=== PATIENT | male | born 1985 | race Caucasian/White ===

== ENCOUNTER 2018-03-18 12:04 | Emergency (ER) | payer OTHER ==
[~2018-03-18] VITALS: Ht 170.2 cm; Wt 70.3 kg
[~2018-03-18 12:04] MED LIST: Bactrim Ds Tab1 EACH PO; CEPH500 PO; CYCL10 PO; DIPATR PO; HYDACE5 PO; HYDR1TAB94 PO; IBUP600 PO; Keflex500 MG PO; NAPR500 PO; OXYACE5T PO; PROM25 PO; RANI150 PO; RXCYCL10 PO; RXHYDACE PO; SULTRIDS PO; TRAM50 PO
[2018-03-18] MEDS ORDERED: ERYT1OIN RIGHTEYE (13:33)
[2018-03-18] MEDS ORDERED: IBUP600 PO (13:33)
== END 2018-03-18 13:37 | disposition home or self-care (01) ==
LOC: ER 12:04
DX: S05.01XA Injury of conjunctiva and corneal abrasion without foreign body, right eye, initial encounter (principal); X58.XXXA Exposure to other specified factors, initial encounter
CPT/HCPCS: 99283

== ENCOUNTER 2018-05-27 20:49 | Emergency (ER) | payer OTHER ==
[~2018-05-27] VITALS: Ht 170.2 cm; Wt 68.0 kg
[~2018-05-27 20:49] MED LIST changes: +ERYT1OIN RIGHTEYE
[2018-05-27] MEDS ORDERED: IBUP600 PO (22:32)
[2018-05-27] MEDS ORDERED: ERYT1OIN BOTHEYES (22:32)
[2018-05-27] MEDS ORDERED: ACUVAIL 0.45%1 EACH RIGHTEYE (22:32)
== END 2018-05-27 22:47 | disposition home or self-care (01) ==
LOC: ER 20:49
DX: S05.01XA Injury of conjunctiva and corneal abrasion without foreign body, right eye, initial encounter (principal); W22.8XXA Striking against or struck by other objects, initial encounter
CPT/HCPCS: 99283

== ENCOUNTER 2018-10-23 20:00 | Emergency (ER) | payer MEDICAID ==
[~2018-10-23] VITALS: Ht 170.2 cm; Wt 74.8 kg
[~2018-10-23 20:00] MED LIST changes: +ACUVAIL 0.45%1 EACH RIGHTEYE; +ERYT1OIN BOTHEYES
== END 2018-10-23 22:47 | disposition home or self-care (01) ==
LOC: ER 20:00
DX: S81.812A Laceration without foreign body, left lower leg, initial encounter (principal); M54.9 Dorsalgia, unspecified; G89.29 Other chronic pain; Z86.19 Personal history of other infectious and parasitic diseases; W06.XXXA Fall from bed, initial encounter
CPT/HCPCS: 73590; A9270-GY

== ENCOUNTER 2018-11-14 21:40 | Emergency (ER) | payer MEDICAID ==
[~2018-11-14] VITALS: Ht 170.2 cm; Wt 77.1 kg
[2018-11-14 22:29] LABS: Bilirubin, Urine Neg (Neg); Blood, Urine 3+ (Neg); Glucose Qualitative, Urine Neg (Neg); Ketones, Urine Neg (Neg); Leukocyte Esterase, Urine 3+ (Neg); Nitrite, Urine Neg (Neg); Protein, Urine 2+ (Neg); Source, Urine Clean Catch; Specific Gravity, Urine 1.025 (1.003-1.022); Urobilinogen, Urine NORM (Normal)
[2018-11-14 22:33] LABS: Appearance, Urine Hazy (Clear); Color, Urine Yellow (P-Yellow)
[2018-11-14] MEDS ORDERED: Vibramycin100 MG PO (22:34)
[2018-11-14 22:36] LABS: Bacteria Few /hpf; Squamous Epithelial Cells Not Seen /hpf (Few); White Blood Cells, Urine TNTC /hpf (0-5)
== END 2018-11-14 23:00 | disposition home or self-care (01) ==
LOC: ER 21:40
PROVIDERS: Emergency Medicine
DX: N34.2 Other urethritis (principal); S81.812D Laceration without foreign body, left lower leg, subsequent encounter
CPT/HCPCS: 81001; 87086; 96372; 99283-25; J0696

== ENCOUNTER 2019-05-17 16:40 | Emergency (ER) | payer OTHER ==
[~2019-05-17] VITALS: Ht 170.2 cm; Wt 72.6 kg
[~2019-05-17 16:40] MED LIST changes: +Vibramycin100 MG PO
[2019-05-17 17:42] LABS: BASOPHILS ABSOLUTE AUTO 0.04 K/mm3 (0.00-0.23); BASOPHILS PERCENT AUTO 0 % (0-2); EOSINOPHILS ABSOLUTE AUTO 0.03 K/mm3 (0.00-0.68); EOSINOPHILS PERCENT AUTO 0 % (0-6); Hematocrit 44.7 % (37.0-53.0); Hemoglobin 14.9 g/dL (13.5-17.5); IMMATURE GRAN ABSOLUTE AUTO 0.07 K/mm3 (0.00-0.10); IMMATURE GRAN PERCENT AUTO 1 % (0-1); LYMPHOCYTES ABSOLUTE AUTO 1.29 K/mm3 (0.84-5.20); LYMPHOCYTES PERCENT AUTO 9 % (21-46); MONOCYTES ABSOLUTE AUTO 0.55 K/mm3 (0.16-1.47); MONOCYTES PERCENT AUTO 4 % (4-13); Mean Corpuscular HGB 29.7 pg (26.0-34.0); Mean Corpuscular HGB Conc 33.3 g/dL (31.5-36.5); Mean Corpuscular Volume 89 fL (80-100); Mean Platelet Volume 10.9 fL (9.1-12.4); NEUTROPHILS ABSOLUTE AUTO 11.98 K/mm3 (1.96-9.15); NEUTROPHILS PERCENT AUTO 86 % (41-73); Platelet Count 284 K/mm3 (150-400); RDW Coefficient Variation 12.6 % (11.7-14.2); RDW Standard Deviation 41.4 fL (35.1-46.3); Red Blood Cell Count 5.02 M/mm3 (4.30-5.90); White Blood Cell Count 13.96 K/mm3 (4.00-11.30)
[2019-05-17 18:04] LABS: Alanine Aminotransfer (ALT/SGP 88 U/L (12-78); Albumin, Blood 4.1 g/dL (3.4-5.0); Albumin/Globulin Ratio 1.1 (0.8-1.8); Alk Phos 100 U/L (50-136); Anion Gap 8 mmol/L (6-16); Aspartate Aminotrans (AST/SGOT 50 U/L (12-37); Bilirubin, Total 0.6 mg/dL (0.1-1.0); Blood Urea Nitrogen 20 mg/dL (8-24); Bun/Creatinine Ratio 28.5 (12.0-20.0); CO2, Blood 25 mmol/L (21-32); Calcium, Blood 9.5 mg/dL (8.5-10.1); Chloride, Blood 105 mmol/L (98-108); Globulin, Blood 3.7 g/dL (2.2-4.0); Glomerular Filtration Rate >60 (60-); Glucose, Blood 133 mg/dL (70-99); Potassium, Blood 3.7 mmol/L (3.5-5.5); Sodium, Blood 138 mmol/L (136-145); Total Protein, Blood 7.8 g/dL (6.4-8.2)
[2019-05-17 20:07] LABS: Ethanol (Alcohol), Blood, Med <3 mg/dL
[2019-05-17] MEDS ORDERED: ONDA4ODT SL (21:09)
[2019-05-17] MEDS ORDERED: Pepcid20 MG PO (21:09)
== END 2019-05-17 21:35 | disposition home or self-care (01) ==
LOC: ER 16:40
PROVIDERS: Emergency Medicine; Physician Assistant
DX: R10.13 Epigastric pain (principal); R10.84 Generalized abdominal pain
CPT/HCPCS: 36415; 80053; 83690; 85025; 96361; 96374; 96375; 99284-25; A9270-GY; G0480; J1200; J2765; J7120

== ENCOUNTER 2020-06-12 19:04 | Emergency (ER) | payer SELFPAY ==
[~2020-06-12] VITALS: Ht 170.2 cm; Wt 72.6 kg
[~2020-06-12 19:04] MED LIST changes: +MUPIROCIN15 GM TOP; +ONDA4ODT SL; +Pepcid20 MG PO
[2020-06-12 19:59] LABS: BASOPHILS ABSOLUTE AUTO 0.03 K/mm3 (0.00-0.23); BASOPHILS PERCENT AUTO 0 % (0-2); EOSINOPHILS ABSOLUTE AUTO 0.04 K/mm3 (0.00-0.68); EOSINOPHILS PERCENT AUTO 0 % (0-6); Hematocrit 41.5 % (37.0-53.0); Hemoglobin 13.6 g/dL (13.5-17.5); IMMATURE GRAN ABSOLUTE AUTO 0.08 K/mm3 (0.00-0.10); IMMATURE GRAN PERCENT AUTO 1 % (0-1); LYMPHOCYTES ABSOLUTE AUTO 2.32 K/mm3 (0.84-5.20); LYMPHOCYTES PERCENT AUTO 17 % (21-46); MONOCYTES ABSOLUTE AUTO 0.88 K/mm3 (0.16-1.47); MONOCYTES PERCENT AUTO 7 % (4-13); Mean Corpuscular HGB 28.6 pg (26.0-34.0); Mean Corpuscular HGB Conc 32.8 g/dL (31.5-36.5); Mean Corpuscular Volume 87 fL (80-100); Mean Platelet Volume 10.8 fL (9.1-12.4); NEUTROPHILS ABSOLUTE AUTO 10.07 K/mm3 (1.96-9.15); NEUTROPHILS PERCENT AUTO 75 % (41-73); Platelet Count 267 K/mm3 (150-400); RDW Standard Deviation 41.3 fL (35.1-46.3); Red Blood Cell Count 4.75 M/mm3 (4.30-5.90); White Blood Cell Count 13.42 K/mm3 (4.00-11.30)
[2020-06-12 20:23] LABS: Alanine Aminotransfer (ALT/SGP 138 U/L (12-78); Albumin, Blood 3.7 g/dL (3.4-5.0); Albumin/Globulin Ratio 0.8 (0.8-1.8); Alk Phos 123 U/L (50-136); Anion Gap 8 mmol/L (6-16); Aspartate Aminotrans (AST/SGOT 59 U/L (12-37); Bilirubin, Total 0.3 mg/dL (0.1-1.0); Blood Urea Nitrogen 13 mg/dL (8-24); Bun/Creatinine Ratio 14.5 (12.0-20.0); CO2, Blood 24 mmol/L (21-32); Calcium, Blood 9.3 mg/dL (8.5-10.1); Chloride, Blood 106 mmol/L (98-108); Globulin, Blood 4.4 g/dL (2.2-4.0); Glomerular Filtration Rate >60 (60-); Glucose, Blood 107 mg/dL (70-99); Potassium, Blood 3.9 mmol/L (3.5-5.5); Sodium, Blood 138 mmol/L (136-145); Total Protein, Blood 8.1 g/dL (6.4-8.2)
[2020-06-12] MEDS ORDERED: Bactrim Ds Tab1 EACH PO (21:30)
[2020-06-12] MEDS ORDERED: CEPH500 PO (21:30)
[2020-06-12] MEDS ORDERED: IBU600 MG PO (21:30)
== END 2020-06-12 21:40 | disposition home or self-care (01) ==
LOC: ER 19:04
PROVIDERS: Physician Assistant
DX: L02.415 Cutaneous abscess of right lower limb (principal); L03.115 Cellulitis of right lower limb
CPT/HCPCS: 36415; 73562-RT; 80053; 85025; 99283-25; A9270-GY

== ENCOUNTER 2020-12-06 15:28 | Emergency (ER) | payer SELFPAY ==
[~2020-12-06 15:28] MED LIST changes: +IBU600 MG PO
== END 2020-12-06 15:49 | disposition left against medical advice (07) ==
LOC: ER 15:28
DX: Z53.21 Procedure and treatment not carried out due to patient leaving prior to being seen by health care provider (principal)

== ENCOUNTER 2021-01-06 22:41 | Emergency (ER) | payer OTHER ==
[~2021-01-06] VITALS: Ht 172.7 cm; Wt 72.6 kg
== END 2021-01-06 23:34 | disposition home or self-care (01) ==
LOC: ER 22:41
DX: S01.81XA Laceration without foreign body of other part of head, initial encounter (principal); Z91.048 Other nonmedicinal substance allergy status; W22.01XA Walked into wall, initial encounter; Y92.149 Unspecified place in prison as the place of occurrence of the external cause
CPT/HCPCS: 12015; 99284-25

== ENCOUNTER 2022-09-25 22:13 | Emergency (ER) | payer OTHER ==
[~2022-09-25] VITALS: Ht 170.2 cm; Wt 92.0 kg
== END 2022-09-25 22:48 | disposition home or self-care (01) ==
LOC: ER 22:13
DX: I88.9 Nonspecific lymphadenitis, unspecified (principal); Z88.8 Allergy status to other drugs, medicaments and biological substances
CPT/HCPCS: 99282

== ENCOUNTER 2023-01-10 23:36 | Emergency (ER) | payer OTHER ==
[~2023-01-10] VITALS: Ht 170.2 cm; Wt 81.7 kg
[2023-01-10 23:45] VITALS: BP 142/78
== END 2023-01-10 23:55 ==
LOC: ER 23:36
DX: Z02.89 Encounter for other administrative examinations (principal); Z88.8 Allergy status to other drugs, medicaments and biological substances; F10.20 Alcohol dependence, uncomplicated
CPT/HCPCS: 99283; A9270

== ENCOUNTER 2023-03-15 14:35 | Emergency (ER) | payer OTHER ==
[~2023-03-15] VITALS: Ht 170.2 cm; Wt 77.1 kg
[2023-03-15 14:46] VITALS: BP 130/104
[2023-03-15 15:07] LABS: BASOPHILS ABSOLUTE AUTO 0.02 K/mm3 (0.00-0.23); BASOPHILS PERCENT AUTO 0 % (0-2); EOSINOPHILS ABSOLUTE AUTO 0.04 K/mm3 (0.00-0.68); EOSINOPHILS PERCENT AUTO 1 % (0-6); Hematocrit 45.7 % (37.0-53.0); Hemoglobin 15.8 g/dL (13.5-17.5); IMMATURE GRAN ABSOLUTE AUTO 0.02 K/mm3 (0.00-0.10); IMMATURE GRAN PERCENT AUTO 0 % (0-1); LYMPHOCYTES ABSOLUTE AUTO 2.45 K/mm3 (0.84-5.20); LYMPHOCYTES PERCENT AUTO 37 % (21-46); MONOCYTES ABSOLUTE AUTO 0.58 K/mm3 (0.16-1.47); MONOCYTES PERCENT AUTO 9 % (4-13); Mean Corpuscular HGB 29.8 pg (26.0-34.0); Mean Corpuscular HGB Conc 34.6 g/dL (31.5-36.5); Mean Corpuscular Volume 86 fL (80-100); Mean Platelet Volume 11.1 fL (9.1-12.4); NEUTROPHILS ABSOLUTE AUTO 3.56 K/mm3 (1.96-9.15); NEUTROPHILS PERCENT AUTO 53 % (41-73); Platelet Count 245 K/mm3 (150-400); RDW Coefficient Variation 12.8 % (11.7-14.2); RDW Standard Deviation 40.3 fL (35.1-46.3); White Blood Cell Count 6.67 K/mm3 (4.00-11.30)
[2023-03-15 15:28] LABS: Albumin, Blood 3.9 g/dL (3.4-5.0); Albumin/Globulin Ratio 0.9 (0.8-1.8); Bilirubin, Total 0.5 mg/dL (0.1-1.0); Bun/Creatinine Ratio 13.2 (12.0-20.0); Calcium, Blood 9.8 mg/dL (8.5-10.1); Creatinine, Blood 0.91 mg/dL (0.60-1.20); Globulin, Blood 4.3 g/dL (2.2-4.0); Total Protein, Blood 8.2 g/dL (6.4-8.2)
== END 2023-03-15 15:00 | disposition left against medical advice (07) ==
LOC: ER 14:35
PROVIDERS: Student in an Organized Health Care Education/Training Program
DX: R11.0 Nausea (principal); I10 Essential (primary) hypertension; R06.4 Hyperventilation; Z53.21 Procedure and treatment not carried out due to patient leaving prior to being seen by health care provider; B19.20 Unspecified viral hepatitis C without hepatic coma
CPT/HCPCS: 80053; 85025; 93005; 93010; 99282-25

== ENCOUNTER 2023-04-16 15:05 | Emergency (ER) | payer OTHER ==
[~2023-04-16] VITALS: Ht 170.2 cm; Wt 80.7 kg
[~2023-04-16 15:05] MED LIST changes: +AMOCLA875 PO
[2023-04-16 15:10] VITALS: BP 140/98
== END 2023-04-16 18:02 | disposition home or self-care (01) ==
LOC: ER 15:05
DX: S02.0XXA Fracture of vault of skull, initial encounter for closed fracture (principal); W22.8XXA Striking against or struck by other objects, initial encounter; Z88.8 Allergy status to other drugs, medicaments and biological substances
CPT/HCPCS: 12004; 70450; 96365-59; 99284-25; J0690

== ENCOUNTER 2023-04-26 10:33 | Emergency (ER) | payer OTHER ==
[~2023-04-26] VITALS: Ht 170.2 cm; Wt 79.4 kg
[2023-04-26 10:41] VITALS: BP 140/98
== END 2023-04-26 11:07 | disposition left against medical advice (07) ==
LOC: ER 10:33
DX: S01.81XA Laceration without foreign body of other part of head, initial encounter (principal); T81.30XA Disruption of wound, unspecified, initial encounter; Z53.29 Procedure and treatment not carried out because of patient's decision for other reasons; Z88.8 Allergy status to other drugs, medicaments and biological substances; W22.8XXA Striking against or struck by other objects, initial encounter; Y92.149 Unspecified place in prison as the place of occurrence of the external cause
CPT/HCPCS: 99283

== ENCOUNTER 2024-01-15 18:57 | Emergency (ER) | payer OTHER ==
[~2024-01-15] VITALS: Ht 172.7 cm; Wt 85.8 kg
[2024-01-15 19:18] VITALS: BP 171/106
[2024-01-15 20:13] LABS: BASOPHILS ABSOLUTE AUTO 0.02 K/mm3 (0.00-0.23); BASOPHILS PERCENT AUTO 0 % (0-2); EOSINOPHILS ABSOLUTE AUTO 0.04 K/mm3 (0.00-0.68); EOSINOPHILS PERCENT AUTO 1 % (0-6); Hematocrit 43.4 % (37.0-53.0); Hemoglobin 14.7 g/dL (13.5-17.5); IMMATURE GRAN ABSOLUTE AUTO 0.03 K/mm3 (0.00-0.10); IMMATURE GRAN PERCENT AUTO 0 % (0-1); LYMPHOCYTES ABSOLUTE AUTO 2.02 K/mm3 (0.84-5.20); LYMPHOCYTES PERCENT AUTO 29 % (21-46); MONOCYTES ABSOLUTE AUTO 0.49 K/mm3 (0.16-1.47); MONOCYTES PERCENT AUTO 7 % (4-13); Mean Corpuscular HGB 29.8 pg (26.0-34.0); Mean Corpuscular HGB Conc 33.9 g/dL (31.5-36.5); Mean Corpuscular Volume 88 fL (80-100); Mean Platelet Volume 10.6 fL (9.1-12.4); NEUTROPHILS ABSOLUTE AUTO 4.34 K/mm3 (1.96-9.15); NEUTROPHILS PERCENT AUTO 63 % (41-73); Platelet Count 289 K/mm3 (150-400); RDW Coefficient Variation 12.7 % (11.7-14.2); RDW Standard Deviation 41.1 fL (35.1-46.3); Red Blood Cell Count 4.93 M/mm3 (4.30-5.90); White Blood Cell Count 6.94 K/mm3 (4.00-11.30)
[2024-01-15] MEDS ORDERED: Trimethoprim/Sulfamethoxazole DS Tab PO ONE (20:30)
[2024-01-15] MEDS ORDERED: Cephalexin Monohydrate 500 MG Cap PO ONE (20:30)
[2024-01-15 20:45] LABS: Albumin/Globulin Ratio 0.9 (0.8-1.8); Bilirubin, Total 0.3 mg/dL (0.1-1.0); Bun/Creatinine Ratio 20.2 (12.0-20.0); Calcium, Blood 8.9 mg/dL (8.5-10.1); Creatinine, Blood 0.79 mg/dL (0.60-1.20); Globulin, Blood 4.6 g/dL (2.2-4.0); Potassium, Blood 3.9 mmol/L (3.5-5.5); Total Protein, Blood 8.6 g/dL (6.4-8.2)
[2024-01-15] MEDS ORDERED: LORazepam 1 MG Tab PO ONE (21:05)
[2024-01-15] MEDS ORDERED: BACTRIM DS TAB1 EAC1 PO (22:30)
[2024-01-15] MEDS ORDERED: CEPH500 PO (22:30)
== END 2024-01-15 22:32 | disposition home or self-care (01) ==
LOC: ER 18:57
PROVIDERS: Student in an Organized Health Care Education/Training Program
DX: S01.81XA Laceration without foreign body of other part of head, initial encounter (principal); W22.8XXA Striking against or struck by other objects, initial encounter
CPT/HCPCS: 70450; 80053; 85025; 99284-25; A9270

== ENCOUNTER 2024-06-03 15:34 | Emergency (ER) | payer OTHER ==
[~2024-06-03] VITALS: Ht 170.2 cm; Wt 81.7 kg
[~2024-06-03 15:34] MED LIST changes: +BACTRIM DS TAB1 EAC1 PO
[2024-06-03 15:43] VITALS: BP 147/102
== END 2024-06-03 16:15 | disposition home or self-care (01) ==
LOC: ER 15:34
DX: S01.81XA Laceration without foreign body of other part of head, initial encounter (principal); W22.8XXA Striking against or struck by other objects, initial encounter
CPT/HCPCS: 99283

== ENCOUNTER 2024-07-30 13:24 | Emergency (ER) | payer OTHER ==
[~2024-07-30] VITALS: Ht 172.7 cm; Wt 86.2 kg
[2024-07-30 13:26] VITALS: BP 124/81
== END 2024-07-30 14:25 | disposition left against medical advice (07) ==
LOC: ER 13:24
DX: S06.0XAA Concussion with loss of consciousness status unknown, initial encounter (principal); S01.81XA Laceration without foreign body of other part of head, initial encounter; W22.8XXA Striking against or struck by other objects, initial encounter
CPT/HCPCS: 99284

== ENCOUNTER 2025-02-02 14:23 | Emergency (ER) | payer OTHER ==
[~2025-02-02] VITALS: Ht 165.1 cm; Wt 65.8 kg
[2025-02-02 14:39] VITALS: BP 147/99
[2025-02-02] MEDS ORDERED: ALEVAZOL56.7 G1 TOP (15:45)
== END 2025-02-02 16:04 | disposition home or self-care (01) ==
LOC: ER 14:23
DX: B35.6 Tinea cruris (principal)
CPT/HCPCS: 99282; A9270

== ENCOUNTER 2025-03-03 11:56 | Emergency (ER) | payer OTHER ==
[~2025-03-03] VITALS: Ht 170.2 cm; Wt 79.4 kg
[~2025-03-03 11:56] MED LIST changes: +ALEVAZOL56.7 G1 TOP; +TRIMAZOLE85 GM TOP
[2025-03-03] MEDS ORDERED: LORazepam 2 MG/ML 1ML Injection IV ONE (12:35)
[2025-03-03 13:14] LABS: BASOPHILS ABSOLUTE AUTO 0.03 K/mm3 (0.00-0.23); BASOPHILS PERCENT AUTO 0 % (0-2); EOSINOPHILS ABSOLUTE AUTO 0.11 K/mm3 (0.00-0.68); EOSINOPHILS PERCENT AUTO 2 % (0-6); Hematocrit 38.3 % (37.0-53.0); Hemoglobin 12.9 g/dL (13.5-17.5); IMMATURE GRAN ABSOLUTE AUTO 0.07 K/mm3 (0.00-0.10); IMMATURE GRAN PERCENT AUTO 1 % (0-1); LYMPHOCYTES ABSOLUTE AUTO 2.05 K/mm3 (0.84-5.20); LYMPHOCYTES PERCENT AUTO 31 % (21-46); MONOCYTES ABSOLUTE AUTO 0.57 K/mm3 (0.16-1.47); MONOCYTES PERCENT AUTO 9 % (4-13); Mean Corpuscular HGB Conc 33.7 g/dL (31.5-36.5); Mean Corpuscular Volume 88 fL (80-100); NEUTROPHILS ABSOLUTE AUTO 3.85 K/mm3 (1.96-9.15); NEUTROPHILS PERCENT AUTO 58 % (41-73); NRBC ABSOLUTE 0.00 K/mm3 (0.00-0.02); NRBC Auto 0.0 /100 WBC (0.0-0.2); Platelet Count 230 K/mm3 (150-400); RDW Coefficient Variation 13.3 % (11.7-14.2); RDW Standard Deviation 43.6 fL (35.1-46.3)
[2025-03-03] MEDS ORDERED: NS 1,000 ML IV SCH (13:20)
[2025-03-03] MEDS ORDERED: Folic Acid 1 MG TAB PO ONE (13:20)
[2025-03-03 13:38] LABS: Alanine Aminotransfer (ALT/SGP 133 U/L (12-78); Albumin, Blood 3.6 g/dL (3.4-5.0); Albumin/Globulin Ratio 0.9 (0.8-1.8); Anion Gap 8 mmol/L (3-11); Aspartate Aminotrans (AST/SGOT 61 U/L (12-37); Bilirubin, Total 0.5 mg/dL (0.1-1.0); Blood Urea Nitrogen 13 mg/dL (8-24); CO2, Blood 28 mmol/L (21-32); Calcium, Blood 9.2 mg/dL (8.5-10.1); Chloride, Blood 104 mmol/L (98-108); Creatinine, Blood 0.80 mg/dL (0.60-1.20); Ethanol (Alcohol), Blood, Med <3 mg/dL; Globulin, Blood 3.8 g/dL (2.2-4.0); Glucose, Blood 90 mg/dL (70-99); Potassium, Blood 4.2 mmol/L (3.5-5.5); Sodium, Blood 136 mmol/L (136-145); Total Protein, Blood 7.4 g/dL (6.4-8.2)
[2025-03-03 14:51] LABS: Source, Urine Clean Catch
[2025-03-03 14:58] LABS: Bilirubin, Urine Neg (Neg); Glucose Qualitative, Urine Neg (Neg); Ketones, Urine Neg (Neg); Leukocyte Esterase, Urine Neg (Neg); Protein, Urine Neg (Neg); Specific Gravity, Urine 1.010 (1.003-1.022); Urobilinogen, Urine NORM (Normal)
[2025-03-03 15:09] LABS: Color, Urine Pale Yellow (P-Yellow)
[2025-03-03 15:28] LABS: U Amphetamine Screen DETECTED; U Barbituate Screen Not Detected; U Benzodiazapine Screen DETECTED; U Buprenorphine Screen Not Detected; U Cannabinoids Screen DETECTED; U Cocaine Screen Not Detected; U Methadone Screen Not Detected; U Methamphetamine Screen DETECTED; U Opiates Screen Not Detected; U Oxycodone Screen Not Detected; U Phencyclidine Screen Not Detected
[2025-03-03 16:00] VITALS: BP 139/101
== END 2025-03-03 16:29 | disposition home or self-care (01) ==
LOC: ER 11:56
PROVIDERS: Physician Assistant
DX: F10.139 Alcohol abuse with withdrawal, unspecified (principal); Z79.899 Other long term (current) drug therapy
CPT/HCPCS: 80053; 80320; 81003; 85025; 93005; 93010; 96361; 96374; 96375; 99285-25; A9270; J2060; J2560; J7030

== ENCOUNTER 2025-03-24 14:15 | Emergency (ER) | payer OTHER ==
[~2025-03-24] VITALS: Ht 170.2 cm; Wt 87.5 kg
[2025-03-24 15:14] LABS: BASOPHILS ABSOLUTE AUTO 0.04 K/mm3 (0.00-0.23); BASOPHILS PERCENT AUTO 1 % (0-2); EOSINOPHILS ABSOLUTE AUTO 0.11 K/mm3 (0.00-0.68); EOSINOPHILS PERCENT AUTO 1 % (0-6); Hematocrit 42.3 % (37.0-53.0); Hemoglobin 14.8 g/dL (13.5-17.5); IMMATURE GRAN ABSOLUTE AUTO 0.12 K/mm3 (0.00-0.10); IMMATURE GRAN PERCENT AUTO 1 % (0-1); LYMPHOCYTES ABSOLUTE AUTO 2.20 K/mm3 (0.84-5.20); LYMPHOCYTES PERCENT AUTO 26 % (21-46); MONOCYTES ABSOLUTE AUTO 0.76 K/mm3 (0.16-1.47); MONOCYTES PERCENT AUTO 9 % (4-13); Mean Corpuscular HGB Conc 35.0 g/dL (31.5-36.5); Mean Corpuscular Volume 87 fL (80-100); NEUTROPHILS ABSOLUTE AUTO 5.25 K/mm3 (1.96-9.15); NEUTROPHILS PERCENT AUTO 62 % (41-73); NRBC ABSOLUTE 0.00 K/mm3 (0.00-0.02); NRBC Auto 0.0 /100 WBC (0.0-0.2); RDW Coefficient Variation 13.4 % (11.7-14.2); RDW Standard Deviation 42.4 fL (35.1-46.3)
[2025-03-24 15:34] LABS: Platelet Count 224 K/mm3 (150-400)
[2025-03-24] MEDS ORDERED: Pantoprazole Sodium 40 MG Injection IV ONE (16:45)
[2025-03-24 16:48] LABS: Alanine Aminotransfer (ALT/SGP 79.0 U/L (12-78); Albumin, Blood 4.2 g/dL (3.4-5.0); Albumin/Globulin Ratio 1.0 (0.8-1.8); Anion Gap 11.0 mmol/L (3-11); Aspartate Aminotrans (AST/SGOT 50.0 U/L (12-37); Bilirubin, Total 0.7 mg/dL (0.1-1.0); Blood Urea Nitrogen 21.0 mg/dL (8-24); CO2, Blood 21.0 mmol/L (21-32); Calcium, Blood 9.5 mg/dL (8.5-10.1); Chloride, Blood 109.0 mmol/L (98-108); Creatinine, Blood 0.77 mg/dL (0.60-1.20); Globulin, Blood 4.3 g/dL (2.2-4.0); Glucose, Blood 105.0 mg/dL (70-99); Potassium, Blood 4.0 mmol/L (3.5-5.5); Sodium, Blood 137.0 mmol/L (136-145); Total Protein, Blood 8.5 g/dL (6.4-8.2)
[2025-03-24 17:18] VITALS: BP 166/115
== END 2025-03-24 17:26 | disposition home or self-care (01) ==
LOC: ER 14:15
PROVIDERS: Emergency Medicine
DX: I10 Essential (primary) hypertension (principal); R94.31 Abnormal electrocardiogram [ECG] [EKG]
CPT/HCPCS: 36415; 80053; 84484; 85025; 93005; 93010; 99283-25